=== PATIENT | female | born 1970 | race Caucasian/White ===

== ENCOUNTER → 2016-10-04 | Outpatient (CLI) | payer BC ==
--- NOTE | 2016-10-04 18:03 | Diagnostic Imaging Report ---
Indication: Cough and dyspnea starting yesterday. Discussion: Two views of the chest were obtained, no comparison. Enlargement of the pulmonary arteries concerning for underlying pulmonary artery hypertension. Normal heart size. No focal consolidation, pleural fluid, or pneumothorax. No osseous abnormality. Impression: 1. Enlargement of the pulmonary arteries concerning for pulmonary artery hypertension. Dictated by: Dictated on workstation # [id number]
== END ==
LOC: RAD 17:08
PROVIDERS: ATTEND Nurse Practitioner Family
DX: R06.09 Other forms of dyspnea (principal)
CPT/HCPCS: 71020

== ENCOUNTER → 2016-10-13 | Outpatient (CLI) | payer BC ==
--- NOTE | 2016-10-14 09:08 | ECHOCARDIOGRAPHY REPORT ---
PROCEDURE PHYSICIAN: ALISSA DE OLIVEIRA DATE OF PROCEDURE: 10/13/2016 TWO DIMENSIONAL ECHOCARDIOGRAM REPORT PRIMARY PHYSICIAN: Dr. Yamilka Hardwick OTHER PHYSICIAN: REFERRING PHYSICIAN: ORDERING PHYSICIAN: ATTENDING PHYSICIAN: Anastasiya Leija APRN FAMILY PHYSICIAN: READING PHYSICIAN: INDICATION FOR THE PROCEDURE: Pulmonary hypertension. MEASUREMENTS DERIVED VALUES LV DIAMETER (LAX) NORMALS NORMALS Diastolic (3.6-5.2) Eject. Fract. (60%+/-6%) Systolic (2.3-3.9) Diastolic Vol. % Shortening (0.22-0.42) Systolic Vol. Aortic Root IVS THICKNESS Diastolic (0.6-1.1) LVPW THICKNESS Diastolic (0.6-1.1) LA DIAMETER Systolic (2.1-3.7) FINDINGS: 1. Normal sinus rhythm. 2. Left atrial size is normal. 3. Aortic root size is normal. 4. Normal LV size and systolic function. LV EF is 50 to 60%. There are no wall motion abnormalities. 5. RV size and function is normal. 6. Mild diastolic dysfunction is present. There is no pericardial effusion. 7. IVC is dilated at 2 cm which may suggest increased right atrial pressure. VALVULAR STRUCTURE OF THE HEART: There is mild mitral regurgitation. There is mild tricuspid regurgitation; however, the tricuspid velocities are not accurately measured. Peak tricuspid valve velocity is anywhere between 3 to 3.5 m/sec. Considering the velocity of 3 m/sec, RVSP is around 36 mmHg, which is mildly elevated. No significant aortic valve or pulmonic valve pathology is noted. CONCLUSION: 1. Normal LV size and function. 2. Normal RV size and function. 3. Mild mitral regurgitation. 4. Mild diastolic dysfunction. 5. IVC is enlarged which suggest increased right atrial pressure. 6. Mild pulmonary hypertension is noted; however, tricuspid valve velocities were not accurately measured. Pulmonary pressure is about 36 mmHg. Job ID: [id number] Dictated Date: 10/13/2016 20:20:32 Hydrometer Finisher Date: 10/14/2016 09:01:54 / flo HERNANDEZ
== END ==
LOC: CARD 11:50
PROVIDERS: ATTEND Nurse Practitioner Family
DX: I27.2 Other secondary pulmonary hypertension (principal)
CPT/HCPCS: 93306

== ENCOUNTER 2016-11-16 14:45 | Outpatient (RCR) | payer BC | END 2017-02-14 | disposition home or self-care (01) | LOC: CARD 14:45 | PROVIDERS: ATTEND Internal Medicine Interventional Cardiology | DX: R00.2 Palpitations (principal) ==

== ENCOUNTER → 2016-12-03 | Outpatient (CLI) | payer BC ==
[2016-12-03 13:39] LABS: BLOOD UREA NITROGEN 13 MG/DL (7-18); BUN/CREATININE RATIO 18; CREATININE SERUM 0.74 MG/DL (0.60-1.30); GFR ESTIMATED > 60
== END ==
LOC: LAB 13:14
PROVIDERS: ATTEND Nurse Practitioner Family
DX: I27.2 Other secondary pulmonary hypertension (principal); G47.50 Parasomnia, unspecified; R06.00 Dyspnea, unspecified
CPT/HCPCS: 36415; 82565; 84520

== ENCOUNTER → 2016-12-05 | Outpatient (CLI) | payer BC | LOC: RT 16:34 | PROVIDERS: ATTEND Nurse Practitioner Family | DX: I27.2 Other secondary pulmonary hypertension (principal); R06.00 Dyspnea, unspecified | CPT/HCPCS: 94060; 94726; 94729 ==

== ENCOUNTER → 2016-12-05 | Outpatient (CLI) | payer BC ==
[~2016-12-05] MED LIST: CATHETER FLUSH 10 ML SYR IV PRN; IOHEXOL 350 MG/ML 150 ML (OMNIPAQUE 350) VIAL IV ONE; NS 100 ML (IVPB) BAG IV ONE
--- NOTE | 2016-12-05 12:30 | Diagnostic Imaging Report ---
PROCEDURE: CT angiography of the chest with contrast. TECHNIQUE: Multiple contiguous axial images were obtained through the chest after uneventful bolus administration of intravenous contrast. Reconstructed CTA MIP acquisitions were also performed. INDICATION: Dyspnea, abnormal chest radiograph. COMPARISON: 01/21/2011. FINDINGS: The abnormal fullness projecting over the level of the aorticopulmonary window noted at recent chest radiograph is owing to a nonenhancing water density cystic like lesion superiorly just ventral to the left innominate bone extending caudally lateral to the nondisplaced and nondistorted aortic arch and then adjacent to the undivided pulmonary segment, also nondisplaced, caudally being inseparable from the pericardium. In axial plane, this process measures maximal dimensions of 6.4 x 3.6 cm with a maximal cephalocaudal extent of 7.7 cm. It appears homogenous in its fluid density and shows no complexity, calcifications, macroscopic fat, or enhancement. It shows no definable wall but appears encapsulated. It exerts no mass effect upon the adjacent vascular structures. This is a new finding from the study of 2010. It does not show any aggressive or complex features. The etiology is indeterminate. Considerations would include a thymic cyst, atypical positioning of a pericardial cyst, or perhaps duplication cyst or bronchogenic cyst. Thymic cyst versus pericardial cyst is the favored considerations given its simplicity and position. As it has developed from a study of 2010, I feel followup, assuming clinical stability, in 6 months time would be appropriate to exclude further progression and any development of a resultant mass effect. The pulmonary arterial branches are patent and are of normal caliber and show a normal pattern of tapering. There are no findings suggestive of CT evidence for pulmonary hypertension. The thoracic aorta is patent and nonaneurysmal. The lungs are clear. No lung nodule or thoracic lymphadenopathy. The karla appear normal and the remaining mediastinal spaces appear normal. The upper abdomen is negative. IMPRESSION: 1. An encapsulated water density cystic like lesion has developed in the anterior mediastinum and accounts for the abnormal chest radiograph. It shows no complexity, soft tissue element, or aggressive features and exerts no mass effect upon the adjacent vascular structures. 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 As it has developed since 2010, I do feel that a six-month followup CT is appropriate to exclude progressive enlargement. 2. Normal appearance of the patent pulmonary arteries. 3. The chest CT is otherwise normal. Dictated by: Dictated on workstation # [id number]
== END ==
LOC: RAD 09:32
PROVIDERS: ATTEND Nurse Practitioner Family
DX: I27.2 Other secondary pulmonary hypertension (principal); R06.00 Dyspnea, unspecified
CPT/HCPCS: 71275

== ENCOUNTER 2017-03-09 07:30 | Day surgery (SDC) | payer BC ==
[~2017-03-09] VITALS: Ht 157.5 cm; Wt 60.3 kg
[2017-03-09] VITALS (12 sets, daily range): BP systolic 94–136; BP diastolic 62–81
[~2017-03-09 07:30] MED LIST changes: -CATHETER FLUSH 10 ML SYR IV PRN; +HEParin (CATH LAB) 2,000 ML IV ONE; -IOHEXOL 350 MG/ML 150 ML (OMNIPAQUE 350) VIAL IV ONE; -NS 100 ML (IVPB) BAG IV ONE; +NS IV 1000 ML 1,000 ML ONE
[2017-03-09] MEDS ORDERED: NS IV 1000 ML 1,000 ML IV SCH ×2 (07:34→12:53)
[2017-03-09 07:55] LABS: MEAN PLATELET VOLUME 10.8 FL (7.4-10.4); RED BLOOD COUNT 4.32 10^6/uL (4.35-5.85); RED CELL DISTRIBUTION WIDTH 12.5 % (10.0-14.5); WHITE BLOOD COUNT 7.8 10^3/uL (4.3-11.0)
[2017-03-09] MEDS ORDERED: MIDAZOLAM 5 MG/5 ML (VERSED) VIAL ONE (08:05)
[2017-03-09] MEDS ORDERED: fentaNYL INJECTION 100 MCG/2 ML AMP ONE ×2 (08:06→12:05)
[2017-03-09] MEDS ORDERED: methylPREDNISolone 125 MG (Solu-MEDROL) VIAL ONE (08:06)
[2017-03-09] MEDS ORDERED: diphenhydrAMINE 50 MG/ML INJ (BENADRYL) ONE (08:06)
[2017-03-09 08:15] LABS: ALANINE AMINOTRANSFERASE 17 U/L (0-55); ALBUMIN 4.1 GM/DL (3.2-4.5); ANION GAP 10 MMOL/L (5-14); ASPARTATE AMINO TRANSFERASE 22 U/L (5-34); BILIRUBIN,TOTAL 0.6 MG/DL (0.1-1.0); BLOOD UREA NITROGEN 13 MG/DL (7-18); BUN/CREATININE RATIO 17; CALCIUM 9.3 MG/DL (8.5-10.1); CARBON DIOXIDE 25 MMOL/L (21-32); CHLORIDE 102 MMOL/L (98-107); CHOLESTEROL 194 MG/DL (< 200); CREATININE SERUM 0.77 MG/DL (0.60-1.30); DIRECT LDL 109 MG/DL (1-129); GFR ESTIMATED > 60; GLUCOSE 99 MG/DL (70-105); POTASSIUM 3.4 MMOL/L (3.6-5.0); SODIUM 137 MMOL/L (135-145); TOTAL PROTEIN 7.5 GM/DL (6.4-8.2); TRIGLYCERIDES 96 MG/DL (<150); VLDL CHOLESTEROL 19 MG/DL (5-40)
[2017-03-09] MEDS ORDERED: EPIN0.3P3 IJ (08:16)
[2017-03-09] MEDS ORDERED: IBUP-30 PO (08:16)
[2017-03-09] MEDS ORDERED: SPIR25TA3 PO (08:16)
[2017-03-09] MEDS ORDERED: AMLO10TA2 PO (08:16)
[2017-03-09] MEDS ORDERED: ESCI10TA PO (08:16)
[2017-03-09] MEDS ORDERED: METO-387 PO (08:16)
[2017-03-09] MEDS ORDERED: ALPR0.25 PO (08:16)
[2017-03-09] MEDS ORDERED: LIDOCAINE 2% VISCOUS 15 ML UDC ONE (08:26)
[2017-03-09] MEDS ORDERED: MIDAZOLAM 2 MG/2 ML (VERSED) VIAL ONE (12:05)
--- NOTE | 2017-03-09 12:42 | Cardiac Procedure Note-CS/ASA ---
Pre-Procedure Note Pre-Op Procedure Note H&P Reviewed The H&P was reviewed, patient examined and no changes noted. Date H&P Reviewed: Mar 09, 2017 Time H&P Reviewed: 10:00 Conscious Sedation Pre-Proced Time Reviewed: 10:00 ASA Class: 3 Airway Mallampati Classification: ([place] appropriate class) I. II. III, IV Lungs Heart ASA score ASA 1: a normal healthy patient ASA 2: a patient with a mild systemic disease (mid diabetes, controlled hypertension, obesity ASA 3: a patient with a severe systemic disease that limits activity (angina , COPD, prior Myocardial infarction) ASA 4: a patient with an incapacitating disease that is a constant threat to life (CHF, renal failure) ASA 5: a moribund patient not expected to survive 24 hrs. (ruptured aneurysm) ASA 6: a declared brain patient whose organs are being harvested. For emergent operations, add the letter E after the classification Grade 1 Sedation Plan: Analgesia, Amnesia, Plan communicated to team members, Discussed options with patient/fam, Discussed risks with patient/fam Note The patient is an appropriate candidate to undergo the planned procedure, sedation, and anesthesia. The patient immediately re-assessed prior to indication. Jaki DE OLIVEIRA MD Mar 09, 2017 12:42 pm
--- NOTE | 2017-03-09 12:44 | Cardiology Post Procedure Note ---
Post-Procedure Note Physician (s)/Television Repairman (s) Physician Jaki DE OLIVEIRA MD Pre-Procedure Diagnosis Pre-Procedure Diagnosis: shortness of breath Post-Procedure Note Procedure Start Date: Mar 09, 2017 Procedure Start Time: 10:30 Name of Procedure: SHIN Findings/Procedure Note Normal LV and RV function. No significant valve disease. Negative bubble study suggesting no significant intra-cardiac shunting. No ASD/PFO. Normal Pulmonary veins. No thrombus in LA/KAREN. Anesthesia Type: Conscious Sedation Estimated blood loss (mL): none Contrast Amount: none Post-Procedure Diagnosis Post-operative diagnosis: Normal SHIN Jaki DE OLIVEIRA MD Mar 09, 2017 12:44 pm
--- NOTE | 2017-03-09 12:49 | Cardiology Post Procedure Note ---
Post-Procedure Note Physician (s)/Health Diagnostics Teacher (s) Physician Jaki DE OLIVEIRA MD Pre-Procedure Diagnosis Pre-Procedure Diagnosis: shortness of breath, pre cardiothoracic surgery Post-Procedure Note Procedure Start Date: Mar 09, 2017 Procedure Start Time: 12:00 Name of Procedure: Aortogram, Coronary Angiography, LHC, RHC Anesthesia Type: Conscious Sedation Estimated blood loss (mL): none Contrast Amount: none Post-Procedure Diagnosis Post-operative diagnosis: Normal PA, RV, RA, PCWP pressures. No evidence of shunting. Patent epicardial coronary arteries. Normal LV function. Normal thoracic aorta Jaki DE OLIVEIRA MD Mar 09, 2017 12:49 pm
[2017-03-09] MEDS ORDERED: PATIENT MAY USE OWN MEDS, ALL PO SCH (13:00)
--- NOTE | 2017-03-10 09:57 | CARDIAC CATHETERIZATION ---
PROCEDURE PHYSICIAN: ALISSA DE OLIVEIRA DATE OF PROCEDURE: 03/09/2017 COMPLETE HEART CATHETERIZATION: INDICATION: 1. Shortness of breath. 2. Pre-cardiothoracic surgery. PREOPERATIVE DIAGNOSIS: 1. Shortness of breath. 2. Complete cardiac evaluation pre-cardiothoracic surgery. POSTOPERATIVE DIAGNOSES: 1. Normal of right-sided pressures, no evidence of shunting. 2. Normal patent epicardial coronary vessels. 3. Normal thoracic aorta. HISTORY: Ms. Ledesma is a 46-year-old lady with shortness of breath. Previous echocardiogram showed a normal LV function with mild diastolic dysfunction and very mildly elevated PA pressure. 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 Surgery is planned for the cyst. Preoperatively right heart catheterization, left heart catheterization and transesophageal echocardiogram was recommended. Transesophageal echocardiogram was performed this morning, which did not show any significant valvular heart disease. There was no evidence of intracardiac shunting. Normal LV and RV function. PROCEDURE PERFORMED: 1. Right heart catheterization. 2. Left heart catheterization. 3. Coronary angiography. 4. Aortogram. COMPLICATIONS: None. SPECIMENS: None. ANTICOAGULATION: None. ESTIMATED BLOOD LOSS: 20 mL. CONTRAST DOSE: 50 mL of Isovue. FLUOROSCOPY TIME: 4.5 minutes. FLUOROSCOPY DOSE: 86 mGy. PROCEDURE DETAILS: The patient was brought to the [facility] after informed consent was taken. She was draped and prepped in the usual sterile fashion. Access was gained in the right femoral artery with a 6-[place] sheath and right femoral vein with a 7-[place] sheath. Right heart catheterization was performed with a [place]-Edson catheter. Left heart catheterization was performed with a JR4, JL4 and pigtail catheter. FINDINGS: 1. RIGHT HEART CATHETERIZATION: Wedge pressure was 7 mmHg. PA pressure 19 by 9 mmHg RV pressure 35/3 mmHg. RA pressure 7 mmHg. PA saturation 84.4%, RV saturation 80.9%, femoral artery 95.5%, RA 82.3%. No significant step oxygen saturation noted. RAINER cardiac output 8.2, RAINER cardiac index 5.18. 2. LEFT MAIN: Very short left main with no disease. 3. LAD: There is mild ostial narrowing noted; however, that could be due to the catheter. There is no epicardial disease noted in the LAD. The LAD is a transapical vessel. 4. LEFT CIRCUMFLEX ARTERY: The left circumflex artery is a dominant vessel with no disease. 5. RCA: RCA is a small nondominant vessel. 6. LEFT HEART CATHETERIZATION: LV pressure 104/2 mmHg, LVEDP 17 mmHg. Aortic pressure 105/64 mmHg. Normal LV function with no wall motion abnormality. No gradient across the aortic valve. 7. AORTOGRAM: There is no evidence of aortic regurgitation or any other thoracic aortic pathology like aneurysm or dissection. IMPRESSION/CONCLUSION: 1. Normal right heart pressures with no evidence of shunting. 2. Patent epicardial coronary vessels. 3. Normal LV function with mildly elevated LVEDP suggesting diastolic dysfunction. 4. No thoracic aortic aneurysm or dissection noted. Job ID: [id number] Dictated Date: 03/09/2017 13:03:36 Maintenance Advisor Date: 03/10/2017 09:44:14 / flo
== END 2017-03-09 17:30 | disposition home or self-care (01) ==
LOC: CATH 07:30 → SURG 12:53 → ENPENDDIS 17:00 → CATH 17:30
PROVIDERS: ATTEND Internal Medicine Interventional Cardiology
DX: R06.02 Shortness of breath (principal); D15.2 Benign neoplasm of mediastinum; I27.2 Other secondary pulmonary hypertension; R00.2 Palpitations; R53.83 Other fatigue; Z79.899 Other long term (current) drug therapy
CPT/HCPCS: 36415; 80053; 80061; 85027; 87081; 93005; 93312; 93320; 93325; 93460; 93567

== ENCOUNTER → 2017-08-18 | Outpatient (CLI) | payer BC ==
[~2017-08-18] MED LIST changes: +ALPR0.25 PO; +AMLO10TA2 PO; +EPIN0.3P3 IJ; +ESCI10TA PO; -HEParin (CATH LAB) 2,000 ML IV ONE; +IBUP-30 PO; +METO-387 PO; -NS IV 1000 ML 1,000 ML ONE; +SPIR25TA3 PO
--- NOTE | 2017-08-18 13:10 | Diagnostic Imaging Report ---
PROCEDURE: CT chest without contrast. TECHNIQUE: Multiple contiguous axial images were obtained through the chest without the use of intravenous contrast. INDICATION: Followup mediastinal cyst. COMPARISON: CTA chest from 12/05/2016. FINDINGS: Lungs and airway: No endoluminal lesion in the trachea or central bronchi. No pulmonary mass, suspicious nodule, or consolidation. Pleura: No pleural effusion or pneumothorax. Heart and mediastinum: The water-attenuating cyst in the superior and left rico-aspect of the mediastinum has decreased in size, now measuring 5.8 x 3.1 x 6.3 cm (previously 6.1 x 3.7 x 6.6 cm). This maintains simple water attenuation throughout and there are no solid components associated with it. No supraclavicular or axillary lymphadenopathy. No mediastinal, hilar, or juxtaphrenic lymphadenopathy. The heart is normal. Normal-caliber thoracic aorta. Upper abdomen: The visualized portions of upper abdomen are unremarkable. Musculoskeletal: Normal regional skeleton. IMPRESSION: 1. The anterior mediastinal cystic mass has decreased in size but persists. The differential consideration is unchanged but includes benign etiologies such as pericardial cyst versus thymic cyst. 2. No new intrathoracic abnormality. Dictated by: Dictated on workstation # [id number]
== END ==
LOC: RAD 09:05
PROVIDERS: ATTEND Nurse Practitioner
DX: L72.9 Follicular cyst of the skin and subcutaneous tissue, unspecified (principal)
CPT/HCPCS: 71250

== ENCOUNTER → 2023-07-06 | Outpatient (CLI) | payer BC ==
[~2023-07-06] MED LIST changes: +AMLO-251 PO; -AMLO10TA2 PO; -METO-387 PO; +MTP25TSR PO; -SPIR25TA3 PO; +SPIR25TA5 PO
[2023-07-06 11:23] LABS: CREATINE KINASE 113 U/L (29-168)
== END ==
LOC: CARD 10:44
PROVIDERS: ATTEND Nurse Practitioner Family
DX: I10 Essential (primary) hypertension (principal); R07.9 Chest pain, unspecified
CPT/HCPCS: 36415; 82550; 84484; 93005